=== PATIENT | female | born 1950 | race Caucasian/White ===

== ENCOUNTER 2021-08-05 10:02 | Outpatient (CLI) | payer MEDICARE, SELFPAY ==
--- NOTE | 2021-08-05 10:16 | MM_ITS ---
WS: [id number] BILATERAL SCREENING DIGITAL MAMMOGRAM WITH CAD HISTORY: SCREENING COMPARISON: None available. Bilateral CC and MLO views submitted. Computer aided detection analyzed. Breast composition: There are scattered areas of fibroglandular density. No suspicious masses, microc alcifications or architectural distortion. Numerous calcifications. Prior biopsy clip seen best on th e LEFT CC projection in the central breast. No suspicious groups of calcification and no nodules. MM/[place] [id number] IMPRESSION: BI-RADS: 2-Benign FOLLOW UP: 1 Year Follow-up
== END 2021-08-05 10:03 | disposition home or self-care (01) ==
LOC: RADSHAW 10:13
PROVIDERS: PCP Family Medicine; Visit Provider Family Medicine
DX: Z12.31 Encounter for screening mammogram for malignant neoplasm of breast (principal)
CPT/HCPCS: 77067

== ENCOUNTER → 2021-08-28 08:40 | Outpatient (BNVA) | payer MEDICARE, SELFPAY | PROVIDERS: PCP Family Medicine; Visit Provider Surgery | DX: Z20.822 Contact with and (suspected) exposure to COVID-19 (principal) | CPT/HCPCS: 87635 ==

== ENCOUNTER 2021-09-02 13:50 | Inpatient (IN) | payer MEDICARE, SELFPAY ==
[2021-08-28 10:12] VITALS: BMI 39.4
[2021-09-02] VITALS (22 sets, daily range): BP systolic 129–161; BP diastolic 68–95; PULSE 68–93; RESP 16–21; TEMP 36.1–37.1; O2SAT 87–96; BMI 41.1
--- NOTE | 2021-09-02 06:36 | ANES.PREANE2 ---
Pre-Anesthetic Assessment Height/Weight: Height 1.65 m Weight 107.501 kg Preop Diagnosis: diagnostic Operation Date: 09/02/21 08:00 Proposed Procedures p Colonoscopy 79023 K92.1(Not Applicable) - He Hanson MD Familial anesthetic complications: None Was Beta Alla taken within 24 hours: N/A Was Clonidine taken within 24 hours: N/A Last intake: > 8 hrs Social No alcohol and No tobacco Exam alert, oriented x 3, clear to auscultation bilaterally and regular rate & rhythm Airway Mallampati: Class II Dentition: other (missing) Pulmonary Asthma and Sleep Apnea doesn't often need her rescue inhaler CV/HEM Hypertension None reported Hepatic None reported GI None reported Metabolic Morbid Obesity Neuropsych 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 Anesthetic Plan ASA status: 2 Anesthesia: MAC Risk of > 500 ml blood loss (7ml/kg in children): No Medications/Allergies Home Medications Medication Instructions Recorded Confirmed Last Taken Type lisinopril 10 mg tablet 10 mg PO DAILY 07/28/21 08/28/21 Unknown History mometasone (Asmanex Twisthaler) 2 inh INHALATION BID 07/28/21 08/28/21 Unknown History Allergies Allergy/AdvReac Type Severity Reaction Status Date / Time caffeine Allergy Unknown Verified 07/28/21 11:05 shellfish derived Allergy Unknown Verified 07/28/21 11:05 sorbitol Allergy Unknown Verified 07/28/21 11:05 theophylline Allergy Unknown Verified 07/28/21 11:05 [facility] Anesthesia Medical History (Updated 07/28/21 @ 11:31 by He Hanson MD) Diverticulitis Hypertension ALLAN treated with BiPAP Umbilical hernia Surgical History (Updated 07/28/21 @ 11:25 by He Hanson MD) History of colonoscopy History of hysterectomy History of left breast biopsy Status post left breast lumpectomy Social History Smoking and tobacco status: never smoked Data Anesthesia Cardiac Studies: No Data to Display
[2021-09-02] MEDS: sodium chloride 0.9% 1,000 ML 30 ML IV (07:14)
--- NOTE | 2021-09-02 08:11 | W.PM.OPSFHP ---
Same Day Surgery H&P Indication for Procedure/HPI DATE OF PROCEDURE: September 02, 2021 CHIEF COMPLAINT/INDICATIONFOR SURGICAL PROCEDURE: screening PREOP DIAGNOSIS: diagnostic PLANNED PROCEDURE: Operation Date: 09/02/21 08:00 Proposed Procedures p Colonoscopy 07260 K92.1(Not Applicable) - He Hanson MD Medications/Allergies* Home Medications Medication Instructions Recorded Confirmed Type lisinopril 10 mg tablet 10 mg PO DAILY 07/28/21 08/28/21 History mometasone (Asmanex Twisthaler) 2 inh INHALATION BID 07/28/21 08/28/21 History Allergies/Adverse Reactions Allergy/AdvReac Type Severity Reaction Status Date / Time caffeine Allergy Unknown Verified 07/28/21 11:05 shellfish derived Allergy Unknown Verified 07/28/21 11:05 sorbitol Allergy Unknown Verified 07/28/21 11:05 theophylline Allergy Unknown Verified 07/28/21 11:05 Current Medications: Generic Name Dose Route Start Last Admin Trade Name Freq PRN Reason Stop Dose Admin Sodium Chloride 1,000 mls @ 30 mls/hr 09/02/21 06:45 09/02/21 07:14 Sodium Chloride 0.9% IV 09/03/21 06:44 30 mls/hr .Q24H SANDY Administration Pertinent History/Comorbid Conditions* Medical History (Updated 07/28/21 @ 11:31 by He Hanson MD) Diverticulitis Hypertension ALLAN treated with BiPAP Umbilical hernia Surgical History (Updated 07/28/21 @ 11:25 by He Hanson MD) History of colonoscopy History of hysterectomy History of left breast biopsy Status post left breast lumpectomy Social History Smoking and tobacco status: never smoked Pertinent Exam Findings alert, oriented x 3 and regular rate & rhythm Recommendations Surgery/Procedure today Coding Level of Care Code Acute Truss Builder for Chg Ashvin
--- NOTE | 2021-09-02 08:35 | ANE.PACU2 ---
Inpatient post-anesthesia follow up: Airway intact: Yes Vital signs: Temperature 97.2 F Pulse Rate 79 Respiratory Rate 18 Blood Pressure 154/80 Pulse Oximetry 95 Oxygen Delivery Me thod Room Air Oxygen Flow Rate Fraction of Inspir ed Oxygen Hydration adequate: Yes Nausea and vomiting: No Pain level: 1 Mental status: Baseline
--- NOTE | 2021-09-02 08:46 | PC.NURSE ---
abdominal hernia noted. patient states it's been there for awhile
--- NOTE | 2021-09-02 09:15 | PC.NURSE ---
Helped patient to sit on side of bed. c/o abd upper pain . abd remains soft. bowel sounds hypoactive. laid patient back down. patient has been passing flatus and burping. dr jett notified.
--- NOTE | 2021-09-02 09:19 | PC.NURSE ---
patient resting on left side
--- NOTE | 2021-09-02 09:22 | PC.NURSE ---
continues to pass flatus
--- NOTE | 2021-09-02 09:54 | PC.NURSE ---
sitting on side of bed. tolerating well. continue to c/o pain in upper abd.
[2021-09-02] MEDS: ondansetron 4 MG Tablet PO (10:38)
--- NOTE | 2021-09-02 10:38 | PC.NURSE ---
1000 patient amb to bathroom. continue to c/o upper abd pain, rates 8. nauseated. 1015 dr jett notified and updated. 1030 abd soft, hypoactive bowel sounds. assisted back to bed. order received for po zofran.
--- NOTE | 2021-09-02 10:42 | PC.NURSE ---
Zofran given PO. Patient states her pain is at an 8/10. Abd soft, bowel sounds present, only tender at her hernia site
--- NOTE | 2021-09-02 10:44 | PC.NURSE ---
dr jett aware of pain. instructed to allow patient to rest.
--- NOTE | 2021-09-02 11:39 | CT_ITS ---
WS: [id number] CT ABDOMEN PELVIS TECHNIQUE: Noncontrast CT of the abdomen and pelvis with coronal and sagittal reformatted images. CLINICAL INFORMATION: incarcerated ventral hernia with attempted colonoscopy COMPARISON: None. DLP: 1996.[address] scans at [facility] use at least one of these dose optimization techniques: automated e xposure control; mA and/or kV adjustment per patient size (includes targeted exams where dose is matc hed to clinical indication); or iterative reconstruction. FINDINGS: Layering free intraperitoneal air in the ventral abdomen with large [place] ventral abdominal wall hernia containing transverse colon. Large amount of layering free air. Additional small scattered loc ules of free air within the hernia. Scattered locules of free air within the mid and upper abdomen. N o evidence of bowel obstruction. Colon is decompressed. Transverse colon within the hernia is decompr essed. Layering free air within the nondependent ventral abdominal wall hernia. Small amount of free fluid in the pelvis. Small esophageal hiatal hernia. Slight bibasilar atelectasis. Fatty atrophy of the pancreas. Normal caliber abdominal aorta. Aortic c alcification. Adrenal glands are normal. No hydronephrosis in either kidney. Small LEFT renal cyst. Sigmoid diverticulosis. No evidence of acute diverticulitis. CT/CT abdomen pelvis wo con [id number] IMPRESSION: 1. Layering free intraperitoneal air in the ventral abdomen with large [place] th ventral abdominal wall hernia containing transverse colon. 2. Additional Scattered locules of free air within the hernia. Scattered locul es of free air within the mid and upper abdomen. 3. No evidence of bowel obstruction. 4. Layering free air within the nondependent portion of the ventral abdominal wall hernia. 5. Small amount of free fluid in the pelvis. 6. Colon appears decompressed. 7. Small esophageal hiatal hernia. Notified He Hanson MD at 09/02/2021 1:58 PM.
--- NOTE | 2021-09-02 12:31 | PC.NURSE ---
1220 patient to cat scan via stretcher 1220 returned to gi lab bay 1
--- NOTE | 2021-09-02 12:57 | ANE.PACU2 ---
Inpatient post-anesthesia follow up: Airway intact: Yes Vital signs: Temperature 98.1 F Pulse Rate 75 Respiratory Rate 20 Blood Pressure 132/81 Pulse Oximetry 92 Oxygen Delivery Me thod Room Air Oxygen Flow Rate 3 Fraction of Inspir ed Oxygen Hydration adequate: Yes Nausea and vomiting: No Pain level: 1 Mental status: Baseline
--- NOTE | 2021-09-02 13:34 | PC.NURSE ---
patient admitting to med surg room 279 bed 1 1338 report called to Linda
[2021-09-02] MEDS: D5-NS 0.45% + KCL 20 mEq 20 MEQ/1,000 ML BAG 100 MEQ IV ×2 (15:27→22:13)
--- NOTE | 2021-09-02 15:42 | P.HP_ITS ---
Providers/Chief Complaint Admitting Physician: He Hanson MD Primary Care Provider: Dalia Art MD Chief Complaint: Melena History of Present Illness Rose Fay is a 71 year old female who underwent screening colonoscopy earlier today. I was unable to advance past the transverse colon due to the incarcerated umbilical hernia and the colonoscope was withdrawn. Post procedure patient had severe abdominal pain with couple of episodes of vomiting and therefore a CT abdomen pelvis was obtained and she was admitted to the floor. Patient is able to pass flatus but the pain persisted. CT abdomen pelvis showed intraperitoneal free air and patient is tender around the umbilicus. Review of Systems General: Reports: 10 or more systems reviewed and unremarkable except in HPI and below Medications/Allergies Home Medications Medication Instructions Recorded Confirmed Last Taken Type lisinopril 10 mg tablet 10 mg PO DAILY 07/28/21 08/28/21 09/01/21 History mometasone (Asmanex Twisthaler) 2 inh INHALATION BID 07/28/21 08/28/21 09/02/21 05:00 History Allergies Allergy/AdvReac Type Severity Reaction Status Date / Time caffeine Allergy Unknown Verified 07/28/21 11:05 shellfish derived Allergy Unknown Verified 07/28/21 11:05 sorbitol Allergy Unknown Verified 07/28/21 11:05 theophylline Allergy Unknown Verified 07/28/21 11:05 PFSH Acute PFSH: Medical History Diverticulitis Hypertension ALLAN treated with BiPAP Umbilical hernia Surgical History History of colonoscopy (09/02/21) Diverticulosis, incomplete due to of incarcerated umbilical hernia History of hysterectomy History of left breast biopsy Status post left breast lumpectomy Social History Smoking and tobacco status: never smoked Vitals/I&O/Wt Last Vital Signs Temp 98.0 F 09/02/21 15:30 Pulse 81 09/02/21 15:30 Resp 18 09/02/21 15:30 BP 129/82 09/02/21 15:30 Pulse Ox 87 L 09/02/21 15:30 09/02/21 09/02/21 09/02/21 06:59 14:59 22:59 Intake Total 400 / 400 Output Total 200 / 200 Balance 200 / 200 Weight last 48 hrs Weight 247 lb 6 oz Physical Exam Narrative: HEENT: Normocephalic Eye: Sclera /conjunctiva normal Abdomen: Soft to palpation, incarcerated umbilical hernia tender to palpation Neurological: Oriented to place person and time Skin: Intact, no lesions appreciated on gross exam A&P Assessment and plan (1) Free intraperitoneal air: 71-year-old female with abdominal pain and vomiting after incomplete colonoscopy and a subsequent CT abdomen pelvis showed intraperitoneal free air. Patient is tender to palpate around the umbilicus. She is hemodynamically stable. Plan for laparoscopy, possible laparotomy, possible bowel resection, umbilical hernia repair. Procedure, risks, benefits and alternatives have been discussed with the patient who wishes to proceed with surgery. Status: Acute (2) Umbilical hernia: Plan for repair of umbilical hernia at the time of laparoscopy Status: Acute Attestations Medical Necessity Statement*: Intraperitoneal free air after colonoscopy requiring surgery and Inpatient stay for at least 2 midnights Coding Level of Care Code Acute Nanoelectronics Engineer for Gerardo Lock Diagnoses Free intraperitoneal air K66.8 Umbilical hernia K42.9
--- NOTE | 2021-09-02 15:42 | PC.NURSE ---
Pt taken by bed at this time for pre-op.
[2021-09-02] MEDS: ketorolac 30 mg/mL INJ 15 MG IVP (17:04)
[2021-09-02] MEDS: sodium chloride 0.9% 1,000 ML 30 ML (17:05)
--- NOTE | 2021-09-02 17:39 | P.ANESUD_ITS ---
Pre-Anesthetic Update Pre-Anesthetic Assessment: Date of Surgery/Procedure: 09/02/21 Preop Tabitha gnosis: Intraperitoneal free air Proposed Procedure: Operation Date: 09/02/21 08:00 Proposed Procedures p Colonoscopy 12306 K92.1(Not Applicable) - He Hanson MD Operation Date: 09/02/21 16:05 Proposed Procedures p Laparoscopy(Not Applicable) - He Hanson MD Changes from Pre-Anesthetic Assessment: Free air Last Intake: Intake Last Liquid Date 09/01/21 Last Liquid Time 22:00 Last Solid Date 08/31/21 Last Solid Time 17:00 Labs Last 48hrs: > 8 hrs (got some ice chips upon awakening earlier) Vitals: Temperature 98.0 F 09/02/21 15:30 Temperature Source Oral 09/02/21 15:30 Pulse Rate 81 09/02/21 15:30 Respiratory Rate 18 09/02/21 15:30 Respiratory Effort Non-Labored 09/02/21 14:07 Respiratory Depth Normal 09/02/21 14:07 Respiratory Patter n 09/02/21 14:07 Blood Pressure 129/82 09/02/21 15:30 Blood Pressure Patricia n 97 09/02/21 15:30 Blood Pressure Pos ition Supine 09/02/21 15:30 Pulse Oximetry 87 L 09/02/21 15:30 Oxygen Delivery Me thod 09/02/21 15:30 Oxygen Flow Rate 3 09/02/21 08:30 Exam: Pre-Anes Outpt Exam: alert, oriented x 3, clear to auscultation bilaterally and regular rate & rhythm Other Pertinent Information: Other Pertinent Information: patient refuses blood, platelets, cell saver, and albumin Cardiac Studies: No Data to Display
[2021-09-02] MEDS: piperacillin-tazobactam 3.375 GM in sodium chloride 0.9% (plus) 50 ML IV (18:50)
--- NOTE | 2021-09-02 20:11 | PC.NURSE ---
before beard catheter placed, patient cleansed with baby shampoo due to iodine allergy
--- NOTE | 2021-09-02 20:24 | PM.OP ---
Operative Report Date of procedure: September 02, 2021 Pre-op diagnosis: Intraperitoneal free air status post colonoscopy Incarcerated umbilical hernia containing omentum and transverse colon Post-op diagnosis: Iatrogenic transverse colon perforation status post colonoscopy just proximal to the umbilical hernia neck Incarcerated umbilical hernia containing omentum and transverse colon Procedure done: 1. Exploratory laparotomy with primary repair of colon perforation 2. Open primary repair of incarcerated umbilical hernia Specimens removed/disposition: Hernia sac Surgeon: He Hanson Anesthesia: General Condition: stable Brief History: This is a 71-year-old female with incarcerated umbilical hernia who underwent colonoscopy for hematochezia. The colonoscopy could not be completed due to the obstruction noted at the incarcerated hernia and the colonoscope was withdrawn. Patient subsequently developed abdominal pain and vomiting postprocedure and a CT abdomen pelvis showed intraperitoneal free air. Patient was taken to the operating room for exploration, the surgery was delayed due to another patient requiring surgery for hand amputation. Procedure: The patient was taken to operating room and placed in modified lithotomy position under general anesthesia after IV antibiotic had been administered. The abdomen was prepped and draped in a sterile manner. Patient had a large incarcerated umbilical hernia. An incision was made over the umbilical hernia, subcutaneous tissue was divided, hernia sac was opened with a scalpel free air and small amount of purulent fluid. The contents of the incarcerated hernia sac which contained omentum and transverse colon was dissected free from the sac and adhesions were taken down with LigaSure until the transverse colon could be completely freed. The transverse colon near the hernia neck was exteriorized and there was purulent fluid and hematoma noted in the mesocolon. The mesocolon was freed using electrocautery until a perforation measuring about 1 cm was identified. Interrupted 3-0 Vicryl sutures were then placed placed to close the defect and 2-0 Vicryl Lembert sutures were placed over the closed defect. The wound is copiously irrigated with 3 L of saline after the transverse colon was returned to the peritoneal cavity and covered with omentum. The hernia sac was excised from the subcutaneous tissue and sent to pathology. The umbilical hernia was closed primarily using #1 looped PDS. The subcutaneous tissue was approximated using interrupted 3-0 Vicryl suture and skin was closed with james. 10 cc of 0.5% Marcaine was infiltrated around the incision. Sterile dressings were applied. A Nvoak catheter was placed and the patient was extubated and transferred recovery room in stable condition.
[2021-09-03] VITALS (8 sets, daily range): BP systolic 97–131; BP diastolic 64–84; PULSE 74–93; RESP 16–20; TEMP 36.4–37.2; O2SAT 90–95
[2021-09-03] MEDS: piperacillin-tazobactam 3.375 GM in sodium chloride 0.9% (plus) 50 ML IV ×3 (02:36→18:29)
[2021-09-03 05:12] LABS: Basophils # 0.1 10^3/uL (0.0-0.1); Basophils % 0.4 %; Hematocrit 42.9 % (37.0-47.0); Hemoglobin 14.3 g/dL (11.5-15.3); Lymphocytes # 0.5 10^3/uL (0.8-4.8); Lymphocytes % 2.8 %; Mean Corpuscular HGB Conc 33.3 g/dL (30.0-36.0); Mean Corpuscular Hemoglobin 33.1 pg (28.0-34.0); Mean Corpuscular Volume 99.3 fl (81-99); Mean Platelet Volume 9.8 fL (7.4-10.4); Monocytes # 0.6 10^3/uL (0.2-0.9); Monocytes % 3.9 %; Neutrophils # 15.21 10^3/uL (1.8-7.7); Neutrophils % 92.5 %; Nucleated Red Blood Cells % 0 %; Platelet Count 165 10^3/cmm (130-400); Red Blood Count 4.32 10^6/uL (4.1-5.3); Red Cell Distribution Width 13.2 % (12.1-15.1); White Blood Count 16.4 10^3/uL (4.0-10.0)
[2021-09-03 05:27] LABS: Anion Gap 15.1 (5-19); Blood Urea Nitrogen 9 mg/dL (8-23); Calcium 8.4 mg/dL (8.5-10.5); Carbon Dioxide 20 mmol/L (22-29); Chloride 105 mmol/L (98-107); Glomerular Filtration Rate 62.1 mL/min (90-130); Glucose 207 mg/dL (65-115); Osmolality Calculated 287 mOsm/kg (285-295); Potassium 4.1 mmol/L (3.5-5.1); Sodium 136 mmol/L (136-145)
[2021-09-03] MEDS: D5-NS 0.45% + KCL 20 mEq 20 MEQ/1,000 ML BAG 100 MEQ IV ×2 (08:43→18:28)
[2021-09-03] MEDS: lisinopril 10 mg Tablet PO (08:58)
[2021-09-03] MEDS: HYDROcodone-acetaminophen 5-325 mg Tablet 1 TAB PO ×2 (09:07→15:02)
--- NOTE | 2021-09-03 09:30 | PM.PN ---
Subjective Subjective: Patient states abdominal pain is better, no nausea or vomiting, no flatus or BM Medications: Reviewed: Yes Vitals/I&O/Wt Last Vital Signs Temp 98.8 F 09/03/21 08:45 Pulse 82 09/03/21 08:45 Resp 16 09/03/21 08:45 BP 108/71 09/03/21 08:45 Pulse Ox 92 09/03/21 08:45 09/02/21 09/03/21 09/03/21 22:59 06:59 14:59 Intake Total 650 / 1050 1000 / 1000 Output Total 50 / 250 Balance 600 / 800 1000 / 1000 Weight last 48 hrs Weight 247 lb 6 oz Physical Exam Narrative: Abdomen: Soft tender, nondistended, incision clean dry and intact Urinary Catheter Management: Novak: Cath Placed During This Visit: yes Reason for Continuing Indwelling Catheter: Acute Urinary Retention or Obstruction Urinary Catheter Date of Insertion: 09/02/21 Urinary Catheter Time of Insertion: 20:10 Data : 09/03/21 05:02 09/03/21 05:02 A&P Assessment and plan (1) H/O exploratory laparotomy: 71-year-old female status post ex lap and umbilical hernia repair secondary to iatrogenic colon perforation, currently hemodynamically stable, afebrile with postop ileus Start clear liquid diet DC Novak I-S, wean O2 to room air Lovenox for DVT prophylaxis Daily labs Ambulate with physical therapy Continue IV Zosyn Status: Acute Attestations Medical Necessity Statement*: Patient will need at least 2 days of inpatient stay for IV antibiotics and to rule out any postop complications Coding Level of Care Code Acute Customer Account Executive for Gerardo Lock Diagnoses H/O exploratory laparotomy Z98.890
--- NOTE | 2021-09-03 09:52 | PC.CHAP ---
Pastoral Care Encounter/Spiritual Assessment Type of Contact [] Declined warp starter visit [] Patient/Family/Request visit [] Outpatient visit [] Follow-up visit [] Physician referral [] Code/Alert x Routine visit [] Staff referral [] Actively dying [x] Patient sleeping [] Family support [] [] Out of room [] Palliative care [] [] Receiving care in room [] Pre-surgical visit [] Trauma [] Long length of stay [] ICU visit [] Other: Relational/Emotional Strength [] Patient feels connected with others/family/visitors/staff [] Distress [] Loneliness/isolation [] Abandonment Spirituality of Patient [] Person of [place] [] Attends Anglican of their [place] [] Believes in Prayer [] Reads Bible or Nondenominational materials [] There are Spiritual issues to be addressed Can Bander Operator Interventions [] Prayer [] Active listening [] Non-anxious presence [] Spiritual/emotional support [] Crisis/trauma care [] Spiritual counseling [] Bereavement support [] Provided bereavement packet [] Provided Bible/devotional materials [] Provided toy/stuffed animal, coloring book to patient or family member [] Provided Communion [] Anointing/[place] [] Salvation [] Completed spiritual assessment [] Other: Impact on Illness or Injury [] Angry [] Fearful [] Anxious [] Often cries [] Exhaustion [] Unable to work [] Unable to attend hindu [] Unable to walk/stand [] Unable to read [] Unable to drive [] Unable to eat/drink [] Unable to sleep [] Unable to be with family [] Patient intubated [] Other: Summary Time spent with patient
--- NOTE | 2021-09-03 16:44 | PC.NURSE ---
Patient ambulated in the hallway with walker and oxygen. Patient tolerated well.
[2021-09-03] MEDS: sennosides-docusate Tablet 1 TAB PO (18:29)
[2021-09-03] MEDS: enoxaparin 40 mg/0.4 mL Syringe SUBCUT (18:29)
[2021-09-04] VITALS: BP 101/65; PULSE 83; RESP 17; TEMP 36.7; O2SAT 91
[2021-09-04] MEDS: piperacillin-tazobactam 3.375 GM in sodium chloride 0.9% (plus) 50 ML IV ×3 (02:50→18:37)
[2021-09-04 03:04] LABS: Basophils # 0.1 10^3/uL (0.0-0.1); Basophils % 0.3 %; Eosinophils % 0.1 %; Hematocrit 39.7 % (37.0-47.0); Lymphocytes # 1.1 10^3/uL (0.8-4.8); Lymphocytes % 6.4 %; Mean Corpuscular HGB Conc 32.7 g/dL (30.0-36.0); Mean Corpuscular Hemoglobin 32.6 pg (28.0-34.0); Mean Corpuscular Volume 99.5 fl (81-99); Mean Platelet Volume 9.7 fL (7.4-10.4); Monocytes # 0.7 10^3/uL (0.2-0.9); Monocytes % 4.2 %; Nucleated Red Blood Cells % 0 %; Platelet Count 164 10^3/cmm (130-400); Red Blood Count 3.99 10^6/uL (4.1-5.3); Red Cell Distribution Width 13.3 % (12.1-15.1); White Blood Count 16.8 10^3/uL (4.0-10.0)
[2021-09-04 03:20] LABS: Blood Urea Nitrogen 11 mg/dL (8-23); Calcium 8.6 mg/dL (8.5-10.5); Carbon Dioxide 24 mmol/L (22-29); Chloride 100 mmol/L (98-107); Glomerular Filtration Rate 71.1 mL/min (90-130); Glucose 123 mg/dL (65-115); Osmolality Calculated 279 mOsm/kg (285-295); Sodium 134 mmol/L (136-145)
[2021-09-04 03:31] LABS: Anion Gap 14.2 (5-19); Potassium 4.2 mmol/L (3.5-5.1)
[2021-09-04 05:11] VITALS: BP 111/75; PULSE 99; RESP 18; O2SAT 90
[2021-09-04] MEDS: HYDROcodone-acetaminophen 5-325 mg Tablet 1 TAB PO ×2 (05:18→18:48)
--- NOTE | 2021-09-04 05:20 | PC.NURSE ---
patient reported that she did finally pass gas while up to the bathroom
[2021-09-04 08:02] VITALS: BP 114/77; PULSE 98; RESP 17; TEMP 37.2; O2SAT 96
[2021-09-04] MEDS: D5-NS 0.45% + KCL 20 mEq 20 MEQ/1,000 ML BAG 100 MEQ IV (10:31)
[2021-09-04] MEDS: lisinopril 10 mg Tablet PO (10:47)
[2021-09-04] MEDS: sennosides-docusate Tablet 1 TAB PO ×2 (10:47→18:38)
--- NOTE | 2021-09-04 11:28 | PM.PN ---
Subjective Subjective: Patient is passing flatus, no nausea or vomiting, T-max was 99, still has abdominal pain Medications: Reviewed: Yes Vitals/I&O/Wt Last Vital Signs Temp 99.0 F 09/04/21 08:02 Pulse 98 09/04/21 08:02 Resp 17 09/04/21 08:02 BP 114/77 09/04/21 08:02 Pulse Ox 96 09/04/21 08:02 09/03/21 09/04/21 09/04/21 22:59 06:59 14:59 Intake Total 3025 / 4964 889 / 4964 150 / 150 Output Total 750 / 1310 560 / 1310 Balance 2275 / 3654 329 / 3654 150 / 150 Weight last 48 hrs Weight 247 lb 6 oz Physical Exam Narrative: Abdomen: Soft, tender, nondistended, incision clean dry and intact Urinary Catheter Management: Novak: Cath Placed During This Visit: yes Reason for Continuing Indwelling Catheter: Acute Urinary Retention or Obstruction Urinary Catheter Date of Insertion: 09/02/21 Urinary Catheter Time of Insertion: 20:10 Data : 09/04/21 02:47 09/04/21 02:47 A&P Assessment and plan (1) H/O exploratory laparotomy: 71-year-old female status post ex lap and umbilical hernia repair secondary to iatrogenic colon perforation, currently hemodynamically stable, afebrile with postop ileus, passing flatus Advance to full liquid diet I-S, wean O2 to room air, currently she is pulling 500 on her I-S Lovenox for DVT prophylaxis Daily labs Ambulate with physical therapy WBC 16, T-max 99: Continue IV Zosyn Senna S for bowel regimen Continue home meds Status: Acute Attestations Medical Necessity Statement*: Status post colon perforation requiring continued inpatient stay Coding Level of Care Code Acute Cylinder Press Operator for Chg Fwd Diagnoses H/O exploratory laparotomy Z98.890
[2021-09-04] MEDS: enoxaparin 40 mg/0.4 mL Syringe SUBCUT (18:38)
[2021-09-04 22:10] VITALS: BP 134/82; PULSE 98; RESP 22; TEMP 36.7; O2SAT 92
[2021-09-04 22:50] VITALS: RESP 16; O2SAT 92
[2021-09-05] VITALS (8 sets, daily range): BP systolic 118–158; BP diastolic 70–92; PULSE 67–99; RESP 16–18; TEMP 36.8–37.4; O2SAT 92–99
[2021-09-05] MEDS: piperacillin-tazobactam 3.375 GM in sodium chloride 0.9% (plus) 50 ML IV ×3 (02:42→20:42)
[2021-09-05 04:28] LABS: Basophils # 0.1 10^3/uL (0.0-0.1); Basophils % 0.4 %; Eosinophils # 0.1 10^3/uL (0.0-0.8); Eosinophils % 0.8 %; Hematocrit 40.2 % (37.0-47.0); Hemoglobin 12.7 g/dL (11.5-15.3); Lymphocytes % 7.6 %; Mean Corpuscular HGB Conc 31.6 g/dL (30.0-36.0); Mean Corpuscular Hemoglobin 32.3 pg (28.0-34.0); Mean Corpuscular Volume 102.3 fl (81-99); Mean Platelet Volume 9.9 fL (7.4-10.4); Monocytes # 0.6 10^3/uL (0.2-0.9); Monocytes % 4.6 %; Neutrophils # 11.12 10^3/uL (1.8-7.7); Neutrophils % 85.8 %; Nucleated Red Blood Cells % 0 %; Platelet Count 176 10^3/cmm (130-400); Red Blood Count 3.93 10^6/uL (4.1-5.3); Red Cell Distribution Width 13.2 % (12.1-15.1); White Blood Count 12.9 10^3/uL (4.0-10.0)
[2021-09-05 05:15] LABS: Anion Gap 14.9 (5-19); Blood Urea Nitrogen 8 mg/dL (8-23); Calcium 8.8 mg/dL (8.5-10.5); Carbon Dioxide 25 mmol/L (22-29); Chloride 99 mmol/L (98-107); Glomerular Filtration Rate 122.3 mL/min (90-130); Glucose 144 mg/dL (65-115); Osmolality Calculated 281 mOsm/kg (285-295); Potassium 3.9 mmol/L (3.5-5.1); Sodium 135 mmol/L (136-145)
--- NOTE | 2021-09-05 08:08 | PM.PN ---
Subjective Subjective: Patient is tolerating a full liquid diet, no nausea or vomiting, passing flatus, no BM. She got out of bed yesterday on 1 occasion. Patient is still on oxygen, can barely pull 500 on her incentive spirometry Vitals/I&O/Wt Last Vital Signs Temp 99.3 F 09/05/21 04:00 Pulse 98 09/05/21 04:00 Resp 18 09/05/21 04:00 BP 118/86 09/05/21 04:00 Pulse Ox 93 09/05/21 04:00 09/04/21 09/05/21 09/05/21 22:59 06:59 14:59 Intake Total 801.667 / 1642.667 Output Total 1500 / 2100 600 / 2100 Balance -698.333 / -457.333 -600 / -457.333 Physical Exam Narrative: Abdomen: Soft, minimally tender, nondistended, incision clean dry and intact Urinary Catheter Management: Novak: Cath Placed During This Visit: yes, but has since been removed by the nurse Reason for Continuing Indwelling Catheter: Acute Urinary Retention or Obstruction Urinary Catheter Date of Insertion: 09/02/21 Urinary Catheter Time of Insertion: 20:10 Date Urinary Catheter Removed: 09/03/21 Time Urinary Catheter Discontinued: 17:00 Data : 09/05/21 03:24 09/05/21 03:24 A&P Assessment and plan (1) H/O exploratory laparotomy: 71-year-old female status post ex lap and umbilical hernia repair secondary to iatrogenic colon perforation, currently hemodynamically stable, afebrile with postop ileus, passing flatus full liquid diet I-S, wean O2 to room air, currently she is pulling 500 on her I-S Lovenox for DVT prophylaxis Daily labs Ambulate with physical therapy WBC 12, T-max 99: Continue IV Zosyn Senna S for bowel regimen DC IV fluids Continue home meds Status: Acute Attestations Medical Necessity Statement*: Continue IV antibiotics, awaiting return of bowel function, hopefully home in the next 24 to 48 hours Coding Level of Care Code Acute College Sports Assistant for [place] Fwd Diagnoses H/O exploratory laparotomy Z98.890
--- NOTE | 2021-09-05 10:22 | PC.SOCIAL ---
IMM Update Pg. 2 of IMM updated and reviewed with patient, who verbalized understanding. Copy provided.
[2021-09-05] MEDS: HYDROcodone-acetaminophen 5-325 mg Tablet 1 TAB PO (10:38)
[2021-09-05] MEDS: sennosides-docusate Tablet 1 TAB PO ×2 (10:38→18:26)
[2021-09-05] MEDS: lisinopril 10 mg Tablet PO (10:38)
--- NOTE | 2021-09-05 12:21 | PC.CHAP ---
Pastoral Care Encounter/Spiritual Assessment Type of Contact [] Declined nuclear weapons custodian visit [] Patient/Family/Request visit [] Outpatient visit [] Follow-up visit [] Physician referral [] Code/Alert [X] Routine visit [] Staff referral [] Actively dying [] Patient sleeping [] Family support [] [] Out of room [] Palliative care [] [] Receiving care in room [] Pre-surgical visit [] Trauma [] Long length of stay [] ICU visit [] Other: Relational/Emotional Strength [X] Patient feels connected with others/family/visitors/staff [] Distress [] Loneliness/isolation [] Abandonment Spirituality of Patient [X] Person of Eneida [X] Attends Buddhist of their [place]ne[place] [X] Believes in Prayer [X] Reads Bible or Advent materials [] There are Spiritual issues to be addressed Fuller Brush Man Interventions [] Prayer [X] Active listening [X] Non-anxious presence [] Spiritual/emotional support [] Crisis/trauma care [] Spiritual counseling [] Bereavement support [] Provided bereavement packet [] Provided Bible/devotional materials [] Provided toy/stuffed animal, coloring book to patient or family member [] Provided Communion [] Anointing/[place] [] Salvation [X] Completed spiritual assessment [] Other: Impact on Illness or Injury [] Angry [] Fearful [] Anxious [] Often cries [] Exhaustion [] Unable to work [] Unable to attend hoahaoism [] Unable to walk/stand [] Unable to read [] Unable to drive [] Unable to eat/drink [] Unable to sleep [] Unable to be with family [] Patient intubated [] Other: Summary: Pt recently moved to [place] but is part of a community of ene[place] where she has support ([employer]ism). Pt's overall attitude is one of gratitude. During colonoscopy, problematic hernia issue detected and surgery followed. Pt has strong eneida and feels supported. Time spent with patient: 15 mins
[2021-09-05] MEDS: enoxaparin 40 mg/0.4 mL Syringe SUBCUT (18:25)
[2021-09-06] VITALS (7 sets, daily range): BP systolic 128–149; BP diastolic 75–93; PULSE 92–100; RESP 16–18; TEMP 36.6–37.6; O2SAT 92–98
[2021-09-06 03:42] LABS: Basophils # 0.1 10^3/uL (0.0-0.1); Basophils % 0.5 %; Eosinophils # 0.2 10^3/uL (0.0-0.8); Eosinophils % 1.9 %; Hematocrit 37.1 % (37.0-47.0); Hemoglobin 11.9 g/dL (11.5-15.3); Lymphocytes # 1.3 10^3/uL (0.8-4.8); Mean Corpuscular HGB Conc 32.1 g/dL (30.0-36.0); Mean Corpuscular Hemoglobin 32.2 pg (28.0-34.0); Mean Corpuscular Volume 100.3 fl (81-99); Mean Platelet Volume 9.3 fL (7.4-10.4); Monocytes # 0.7 10^3/uL (0.2-0.9); Monocytes % 7.8 %; Neutrophils # 7.13 10^3/uL (1.8-7.7); Neutrophils % 75.4 %; Nucleated Red Blood Cells % 0 %; Platelet Count 182 10^3/cmm (130-400); White Blood Count 9.5 10^3/uL (4.0-10.0)
[2021-09-06] MEDS: piperacillin-tazobactam 3.375 GM in sodium chloride 0.9% (plus) 50 ML IV ×2 (03:48→10:36)
[2021-09-06 04:02] LABS: Anion Gap 10.7 (5-19); Blood Urea Nitrogen 8 mg/dL (8-23); Carbon Dioxide 28 mmol/L (22-29); Chloride 100 mmol/L (98-107); Glomerular Filtration Rate 122.3 mL/min (90-130); Glucose 136 mg/dL (65-115); Osmolality Calculated 280 mOsm/kg (285-295); Potassium 3.7 mmol/L (3.5-5.1); Sodium 135 mmol/L (136-145)
[2021-09-06] MEDS: sennosides-docusate Tablet 1 TAB PO ×2 (10:36→16:38)
[2021-09-06] MEDS: lisinopril 10 mg Tablet PO (10:37)
--- NOTE | 2021-09-06 12:18 | P.PN_ITS ---
Subjective Subjective: Patient denies any nausea or vomiting, tolerating full liquid diet. She is still on 2 L oxygen delivered now she is pulling about 1000 on her IS Medications: Reviewed: Yes Vitals/I&O/Wt Last Vital Signs Temp 98.3 F 09/06/21 12:00 Pulse 100 09/06/21 12:00 Resp 18 09/06/21 12:00 BP 128/92 09/06/21 12:00 Pulse Ox 97 09/06/21 12:00 09/05/21 09/06/21 09/06/21 22:59 06:59 14:59 Intake Total 50 / 460 50 / 50 Output Total 1200 / 1200 Balance -1200 / -740 50 / -740 50 / 50 Physical Exam Narrative: Abdomen: Soft, mildly tender, nondistended, incision clean dry and intact Urinary Catheter Management: Novak: Cath Placed During This Visit: yes, but has since been removed by the nurse Reason for Continuing Indwelling Catheter: Acute Urinary Retention or Obstruction Urinary Catheter Date of Insertion: 09/02/21 Urinary Catheter Time of Insertion: 20:10 Date Urinary Catheter Removed: 09/03/21 Time Urinary Catheter Discontinued: 17:00 Data : 09/06/21 03:22 09/06/21 03:22 A&P Assessment and plan (1) H/O exploratory laparotomy: 71-year-old female status post ex lap and umbilical hernia repair secondary to iatrogenic colon perforation, currently hemodynamically stable, afebrile with postop ileus, passing flatus Advance to GI soft diet I-S, wean O2 to room air, currently she is pulling 1000 on her I-S, home o2 eval Lovenox for DVT prophylaxis Daily labs Ambulate with physical therapy WBC 9, T-max 99.3: Continue IV Zosyn Senna S for bowel regimen Continue home meds Status: Acute Attestations Medical Necessity Statement*: plan for possible discharge tomorrow as patient has not had BM and is still on 2L o2 Coding Level of Care Code Acute Endocrinology Physician for Gerardo Fwyadira Diagnoses H/O exploratory laparotomy Z98.890
[2021-09-06] MEDS: metroNIDAZOLE 500 MG Tablet PO ×2 (16:38→19:37)
[2021-09-06] MEDS: levoFLOXacin 750 mg Tablet PO (16:38)
[2021-09-06] MEDS: enoxaparin 40 mg/0.4 mL Syringe SUBCUT (16:38)
[2021-09-07 02:47] VITALS: BP 151/83; PULSE 81; RESP 16; TEMP 37; O2SAT 95
[2021-09-07 04:35] LABS: Basophils % 0.5 %; Eosinophils # 0.2 10^3/uL (0.0-0.8); Hemoglobin 11.7 g/dL (11.5-15.3); Lymphocytes # 1.2 10^3/uL (0.8-4.8); Lymphocytes % 15.1 %; Mean Corpuscular HGB Conc 32.5 g/dL (30.0-36.0); Mean Corpuscular Hemoglobin 32.5 pg (28.0-34.0); Mean Platelet Volume 9.1 fL (7.4-10.4); Monocytes # 0.8 10^3/uL (0.2-0.9); Monocytes % 9.6 %; Neutrophils # 5.85 10^3/uL (1.8-7.7); Neutrophils % 71.6 %; Nucleated Red Blood Cells % 0 %; Platelet Count 177 10^3/cmm (130-400); Red Cell Distribution Width 12.9 % (12.1-15.1); White Blood Count 8.2 10^3/uL (4.0-10.0)
[2021-09-07 05:02] LABS: Anion Gap 12.8 (5-19); Blood Urea Nitrogen 8 mg/dL (8-23); Calcium 9.1 mg/dL (8.5-10.5); Carbon Dioxide 29 mmol/L (22-29); Chloride 96 mmol/L (98-107); Glomerular Filtration Rate 122.3 mL/min (90-130); Glucose 128 mg/dL (65-115); Osmolality Calculated 278 mOsm/kg (285-295); Potassium 3.8 mmol/L (3.5-5.1); Sodium 134 mmol/L (136-145)
[2021-09-07] MEDS: levoFLOXacin 750 mg Tablet PO (05:12)
[2021-09-07 07:45] VITALS: BP 133/87; PULSE 95; RESP 18; TEMP 37.1; O2SAT 93
[2021-09-07] MEDS: lisinopril 10 mg Tablet PO (08:26)
[2021-09-07] MEDS: metroNIDAZOLE 500 MG Tablet PO (08:26)
[2021-09-07] MEDS: sennosides-docusate Tablet 1 TAB PO (08:26)
--- NOTE | 2021-09-07 09:23 | PC.SOCIAL ---
IMM UPDATED IMM dated and initialed and copy given to patient
[2021-09-07 09:39] VITALS: O2SAT 92; O2SAT 95
--- NOTE | 2021-09-07 09:56 | P.PN_ITS ---
Subjective Subjective: Patient had multiple bowel movements yesterday, tolerating GI soft diet Medications: Reviewed: Yes Vitals/I&O/Wt Last Vital Signs Temp 98.7 F 09/07/21 07:45 Pulse 95 09/07/21 07:45 Resp 18 09/07/21 07:45 BP 133/87 09/07/21 07:45 Pulse Ox 95 09/07/21 09:39 09/06/21 09/07/21 09/07/21 22:59 06:59 14:59 Intake Total 480 / 580 Output Total 300 / 1600 600 / 1600 Balance 180 / -1020 -600 / -1020 Physical Exam Narrative: Abdomen: Soft, minimally tender, nondistended, incision clean dry and intact Urinary Catheter Management: Novak: Cath Placed During This Visit: yes, but has since been removed by the nurse Reason for Continuing Indwelling Catheter: Acute Urinary Retention or Obstruction Urinary Catheter Date of Insertion: 09/02/21 Urinary Catheter Time of Insertion: 20:10 Date Urinary Catheter Removed: 09/03/21 Time Urinary Catheter Discontinued: 17:00 Data : 09/07/21 04:08 09/07/21 04:08 A&P Assessment and plan (1) H/O exploratory laparotomy: 71-year-old female status post ex lap and umbilical hernia repair secondary to iatrogenic colon perforation, currently hemodynamically stable, afebrile with postop ileus that has resolved DC home today Status: Acute Attestations Medical Necessity Statement*: DC home today Coding Level of Care Code Acute Senior Compensation Consultant for [place] Fwyadira Diagnoses H/O exploratory laparotomy Z98.890
--- NOTE | 2021-09-07 09:59 | PM.DCS ---
Discharge Providers Date of Admission: 09/02/21 13:50 Date of Discharge: September 07, 2021 Attending Provider at Admission: He Hanson MD Attending Provider at Discharge: He Hanson MD Primary Care Provider: Dalia Art MD Diagnoses at Discharge Discharge Diagnosis (1) H/O exploratory laparotomy: Status: Acute Reason for Visit Reason for Visit: Colon perforation Brief History: This is a 71-year-old female who had undergone screening colonoscopy and subsequently developed abdominal pain at the site of incarcerated hernia. CT abdomen pelvis showed intraperitoneal free air. Hospital Course Hospital Course Patient was taken to the operating room where she underwent exploratory laparotomy with repair of perforation of the transverse colon adjacent to the hernia neck. I also performed a primary repair of her incarcerated umbilical hernia which contained omentum and transverse colon. Patient was monitored postoperatively and placed on IV Zosyn. By day 3 she had return of bowel function and at time of discharge she was afebrile, tolerating a regular diet, having bowel movements and her incisions are clean dry and intact. Patient had been on 2 L oxygen and she was finally able to come off oxygen on the day of discharge with aggressive incentive spirometery. Physical Exam Urinary Catheter Management: Novak: Cath Placed During This Visit: yes, but has since been removed by the nurse Reason for Continuing Indwelling Catheter: Acute Urinary Retention or Obstruction Urinary Catheter Date of Insertion: 09/02/21 Urinary Catheter Time of Insertion: 20:10 Date Urinary Catheter Removed: 09/03/21 Time Urinary Catheter Discontinued: 17:00 Discharge Data Studies Completed and Pending Completed Studies During Hospitalization Category Date Time Status CT abdomen pelvis con [id number] Routine Cat Scan 09/02/21 11:39 Completed Pathology: Surgical [PTH] Routine Pth 09/02/21 20:00 Completed Pending at discharge Category Date Time Status Basic Metabolic Panel AM LABS Lab 09/08/21 04:00 Ordered Complete Blood Count w/Auto AM LABS Lab 09/08/21 04:00 Ordered Radiology Impressions Abdomen/Pelvis CT 09/02/21 11:39 IMPRESSION: 1. Layering free intraperitoneal air in the ventral abdomen with large [place] ventral abdominal wall hernia containing transverse colon. 2. Additional Scattered locules of free air within the hernia. Scattered locules of free air within the mid and upper abdomen. 3. No evidence of bowel obstruction. 4. Layering free air within the nondependent portion of the ventral abdominal wall hernia. 5. Small amount of free fluid in the pelvis. 6. Colon appears decompressed. 7. Small esophageal hiatal hernia. Notified He Hanson MD at 09/02/2021 1:58 PM. Laboratory Results WBC 8.2 10^3/uL (4.0-10.0) 09/07/21 04:08 RBC 3.60 10^6/uL (4.1-5.3) L 09/07/21 04:08 Hgb 11.7 g/dL (11.5-15.3) 09/07/21 04:08 Hct 36.0 % (37.0-47.0) L 09/07/21 04:08 MCV 100.0 fl (81-99) H 09/07/21 04:08 MCH 32.5 pg (28.0-34.0) 09/07/21 04:08 MCHC 32.5 g/dL (30.0-36.0) 09/07/21 04:08 RDW 12.9 % (12.1-15.1) 09/07/21 04:08 Plt Count 177 10^3/cmm (130-400) 09/07/21 04:08 MPV 9.1 fL (7.4-10.4) 09/07/21 04:08 Neut % (Auto) 71.6 % 09/07/21 04:08 Lymph % (Auto) 15.1 % 09/07/21 04:08 [place] % (Auto) 9.6 % 09/07/21 04:08 Eos % (Auto) 2.0 % 09/07/21 04:08 Baso % (Auto) 0.5 % 09/07/21 04:08 Neut # (Auto) 5.85 10^3/uL (1.8-7.7) 09/07/21 04:08 Lymph # (Auto) 1.2 10^3/uL (0.8-4.8) 09/07/21 04:08 [place] # (Auto) 0.8 10^3/uL (0.2-0.9) 09/07/21 04:08 Eos # (Auto) 0.2 10^3/uL (0.0-0.8) 09/07/21 04:08 Baso # (Auto) 0.0 10^3/uL (0.0-0.1) 09/07/21 04:08 Nucleated RBC % (auto) 0 % 09/07/21 04:08 Nucleated RBCs # 0.0 /100WBC 09/07/21 04:08 Sodium 134 mmol/L (136-145) L 09/07/21 04:08 Potassium 3.8 mmol/L (3.5-5.1) 09/07/21 04:08 Chloride 96 mmol/L (98-107) L 09/07/21 04:08 Carbon Dioxide 29 mmol/L (22-29) 09/07/21 04:08 Anion Gap 12.8 (5-19) 09/07/21 04:08 BUN 8 mg/dL (8-23) 09/07/21 04:08 Creatinine 0.5 mg/dL (0.5-0.9) 09/07/21 04:08 GFR Calculation 122.3 mL/min (90-130) 09/07/21 04:08 Glucose 128 mg/dL (65-115) H 09/07/21 04:08 Calculated Osmolality 278 mOsm/kg (285-295) L 09/07/21 04:08 Calcium 9.1 mg/dL (8.5-10.5) 09/07/21 04:08 Vitals Last Vital Signs Temp 98.7 F 09/07/21 07:45 Pulse 95 09/07/21 07:45 Resp 18 09/07/21 07:45 BP 133/87 09/07/21 07:45 Pulse Ox 95 09/07/21 09:39 Discharge Plan Discharge Patient Disposition: Home Condition: Stable Prescriptions: New hydrocodone-acetaminophen 5-325 mg tablet 1 tab PO Q6H PRN (Reason: pain) Qty: 20 0RF Zofran 4 mg tablet 4 mg PO Q6H PRN (Reason: nausea and vomiting) Qty: 20 0RF Senna with Docusate Sodium 8.6-50 mg tablet 1 tab-cap PO BID Qty: 30 0RF levofloxacin 750 mg tablet 750 mg PO DAILY 5 Days 0RF metronidazole 500 mg tablet 500 mg PO Q8H 5 Days Qty: 15 0RF Continued lisinopril 10 mg tablet 10 mg PO DAILY 0RF Asmanex Twisthaler 220 mcg/ actuation (120) aerosol powdr breath activated 2 inh inhalation BID 0RF Discharge Orders: Discharge Order (Routine); Ordered 09/07/21 Ordered By: He Hanson Other Ambulatory Orders: DME: Kel (Order) Location: None Selected Ordered By: He Hanson Referrals: He Hanson MD [Physician] - 2 weeks (Tele after Gastrografin enema -ask office to schedule a Gastrografin enema. Dr Hanson's office will call you to schedule your 2 week telehealth visit and your enema. If you do not hear from the office within 2 weeks please call [phone] to schedule.) Discharge Diet: Advance as tolerated Discharge Activity: Resume usual activity Patient Instructions: Metronidazole (By mouth), Ondansetron (By mouth), Levofloxacin (By mouth), Hydrocodone (By mouth), Senna (By mouth), Umbilical Hernia (DC), GI Discharge Instructions Activity Restrictions/Additional Instructions: Diet Advance to normal diet as tolerated, increase fluid intake as much as possible. Activity Avoid strenuous activity for 2 weeks but continue with daily activities including walking as tolerated. Do not lift more than 10 pounds for 2 weeks Return to work/school You can return to work/ school whenever you feel ready as long as you don?t have to lift more than 10 pounds at work. If you have paperwork that needs to be completed for time off from work, please contact my office Driving You can resume driving once you stop using narcotic pain medications, and transition to non-opioid pain medications like Tylenol, Motrin, Aleve, etc. Medications Pain Take opioid pain medications as prescribed and transition to non-opioid pain medications like Tylenol, Motrin, Aleve etc. over the next few days. The goal of the pain medications is to make the pain bearable and not to be pain free since you recently had surgery. Resume all home medications after surgery as per the medication reconciliation list Nausea Nausea is common after surgery, take nausea medications as needed and stay on a liquid bland diet until nausea resolves. Constipation The combination of surgery, anesthesia and pain medications can result in constipation. Take stool softeners as prescribed. If you do not have a bowel movement in 3 days, please take an [id number]-[id number]-prtnyjv laxative like MiraLAX to address the constipation. Shower It is ok to shower but avoid getting the wound wet for 48 hours after surgery. Do not soak in bathtub, swimming pool or hot tub for 2 weeks. Wound care If glue has been used on your incisions after surgery, the glue on the incision will peel slowly over the next two weeks. The stitches used are dissolvable and will not need to be removed. Do not apply antibiotics or other medications on the incision Problems with the wound: you can develop some redness around the incision from bruising after surgery. If there is increasing pain, redness, tenderness around the incision with or without drainage, please contact my office to rule out an infection. Sometimes the skin at the incisions can separate, resulting in reopening of the wound. Cover the wound with antibiotic cream and sterile dressings and contact my office. Contact physician Call the office at [phone] during office hours or go the Emergency Room ?Fever to 100.4 or greater ?Shaking chills ?Pain that increases over time ?Redness, warmth, or pus draining from incision sites ?Persistent nausea or inability to take in liquids Discharge Attestations Time Spent in Discharge Care*: less than 30 min Quality Metrics Clinical Quality Measures [ No reported AMI, CVA or VTE this stay] Coding Level of Care Code Acute Chg FW DC note Diagnoses H/O exploratory laparotomy Z98.890
[2021-09-07 11:35] VITALS: BP 128/72; PULSE 73; RESP 17; TEMP 36.9; O2SAT 98
--- NOTE | 2021-09-07 11:51 | PC.NURSE ---
Discharge Patient was discharged to private vehicle via wheelchair and was able to transfer self to car. All belongings were with patient. Discharge instructions were given and read per orders. PT understood and gave verbal understanding.
[2021-09-07 11:53] VITALS: BP 128/72; PULSE 73; RESP 17; TEMP 36.9; O2SAT 98
== END 2021-09-07 11:40 | disposition home or self-care (01) | DRG 908 ==
LOC: MEDSURG 13:52
PROVIDERS: Admitting Provider Surgery; PCP Family Medicine; Visit Provider Surgery
PROC: 0DJD8ZZ Inspection of Lower Intestinal Tract, Via Natural or Artificial Opening Endoscopic (ICD-10-PCS; CPT 45378; principal; 2021-09-02 08:00)
PROC: 0WQF0ZZ Repair Abdominal Wall, Open Approach (ICD-10-PCS; principal; 2021-09-02 16:05)
DX: K91.71 Accidental puncture and laceration of a digestive system organ or structure during a digestive system procedure (principal); K42.0 Umbilical hernia with obstruction, without gangrene; Z68.41 Body mass index [BMI] 40.0-44.9, adult; G47.33 Obstructive sleep apnea (adult) (pediatric); I10 Essential (primary) hypertension; J45.909 Unspecified asthma, uncomplicated; E66.01 Morbid (severe) obesity due to excess calories; K66.8 Other specified disorders of peritoneum; Z98.890 Other specified postprocedural states; Z87.19 Personal history of other diseases of the digestive system
CPT/HCPCS: 36415; 51702; 74176; 80048; 85025; 88302; 94664; 96372; 97110; 97116; 97161; 97530; G0121; J1100; J1650; J1885; J2405; J2543; J2704; J2710; J3010; J3490; J7030; Q0162

== ENCOUNTER 2022-02-05 07:57 | Outpatient (CLI) | payer BC, SELFPAY ==
--- NOTE | 2022-02-05 08:16 | FL_ITS ---
WS: [id number] Exam: [place] barium enema [id number] Date/Time of Exam: 02/05/2022 8:29 AM Reason For Exam: HEMATOCHEZIA Preliminary abdominal survey is unremarkable. The colon fills to the cecum but no barium couldn't be refluxed into the terminal ileum. No colonic m ass or constricting lesion was noted. Scattered retained particulate stool was present which would pr eclude detection of a small mucosal lesion or polyp. There is diverticulosis of the sigmoid and left colon. The colon is nondisplaced. The haustral pattern is otherwise well maintained. FL/FL barium enema [id number] IMPRESSION: 1. No obvious colonic mass or constricting lesion. 2. Retained particulate fecal debris which would preclude detection of a small mucosal lesion or polyp. 3. Marked diverticulosis of the sigmoid and lower descending colon with additio nal diverticula in the remainder of the descending colon and splenic flexure.
== END 2022-02-05 07:58 | disposition home or self-care (01) ==
LOC: RAD 08:04
PROVIDERS: PCP Family Medicine; Visit Provider Surgery
DX: K92.1 Melena (principal); K57.30 Diverticulosis of large intestine without perforation or abscess without bleeding
CPT/HCPCS: 74270

== ENCOUNTER 2023-02-14 13:16 | Outpatient (CLI) | payer BC, SELFPAY ==
--- NOTE | 2023-02-14 13:37 | MM_ITS ---
WS: [id number] SCREENING DIGITAL TOMOSYNTHESIS MAMMOGRAM WITH CAD HISTORY: SCREENING COMPARISON: 08/05/2021 Bilateral CC and MLO with tomosynthesis views submitted. Synthetic mammography reviewed. Computer aid ed detection analyzed. Breast composition: There are scattered areas of fibroglandular density. No suspicious masses, microc alcifications or architectural distortion. Bilateral breast calcifications and asymmetries are stable . Biopsy clip in the central LEFT breast. MM/[place] [id number] IMPRESSION: BI-RADS: 2-Benign FOLLOW UP: 1 Year Follow-up
== END 2023-02-14 13:17 | disposition home or self-care (01) ==
PROVIDERS: PCP Family Medicine; Visit Provider Family Medicine
DX: Z12.31 Encounter for screening mammogram for malignant neoplasm of breast (principal)
CPT/HCPCS: 77063; 77067

== ENCOUNTER 2023-08-12 11:52 | Outpatient (CLI) | payer MEDICARE, SELFPAY ==
--- NOTE | 2023-08-12 12:04 | CT_ITS ---
WS: [id number] CT ABDOMEN AND PELVIS NONCONTRAST HISTORY: FLANK HEMATURIA TECHNIQUE: Imaging performed through the abdomen and pelvis. Coronal and sagittal reformats are submi tted. All CT scans at [facility] use at least one of these dose optimization techniques: auto mated exposure control; mA and/or kV adjustment per patient size (includes targeted exams where dose is matched to clinical indication); or iterative reconstruction. DLP: 960.67 mGy.cm COMPARISON: 09/02/2021 Lower thorax: Lung bases are clear. Visualized heart is normal. No hiatal hernia. Liver: Normal size liver. No mass or bile duct dilatation. Gallbladder: Cholelithiasis without acute cholecystitis. Pancreas: Mild diffuse pancreatic atrophy. Spleen: Normal. Adrenal glands: Normal. No mass. Right kidney: Normal size kidney with no mass or hydronephrosis. Left kidney: No obstruction. Area of decreased attenuation in the upper pole measures 1.6 cm, similar to the prior study. Aorta: Moderate to severe atherosclerosis abdominal aorta. No aneurysm. Atherosclerosis continues int o the common iliac arteries. No free fluid, intraperitoneal air or significant lymphadenopathy. GI tract: No obstruction. Normal appendix. Mild distal colon diverticula without acute diverticulitis . Abdominal wall: Ventral abdominal wall hernia contains omental fat only. Pelvis: Prior hysterectomy. No distal ureteral calcification. Nondistended bladder. Osseous structures: Unremarkable. IMPRESSION: 1. No renal calcifications or obstruction. 2. Low-attenuation mass in the upper pole measures 1.6 cm. This may be a small cyst. This can be fur ther evaluated by ultrasound to exclude solid mass. 3. No distal ureteral calcifications. No bladder calcifications. 4. Mild distal colonic diverticular burden. 5. Cholelithiasis without acute cholecystitis.
== END 2023-08-12 11:53 | disposition home or self-care (01) ==
LOC: RAD 11:53
PROVIDERS: PCP Family Medicine; Visit Provider Family Medicine
DX: R31.0 Gross hematuria (principal); N28.89 Other specified disorders of kidney and ureter; K57.30 Diverticulosis of large intestine without perforation or abscess without bleeding; K80.20 Calculus of gallbladder without cholecystitis without obstruction
CPT/HCPCS: 74176

== ENCOUNTER 2024-05-17 16:33 | Emergency (ER) | payer MEDICARE, SELFPAY ==
[2024-05-17 16:42] VITALS: BP 161/92; PULSE 84; RESP 18; TEMP 36.8; O2SAT 95; BMI 39.7
[2024-05-17 18:36] LABS: Basophils # 0.1 10^3/uL (0.0-0.1); Basophils % 0.5 %; Eosinophils # 0.1 10^3/uL (0.0-0.8); Eosinophils % 0.7 %; Hematocrit 45.5 % (36-47); Lymphocytes # 1.6 10^3/uL (0.8-4.8); Lymphocytes % 15.6 %; Mean Corpuscular HGB Conc 32.7 g/dL (30-55); Mean Corpuscular Hemoglobin 32.9 pg (27-33); Mean Corpuscular Volume 100.4 fl (85-98); Mean Platelet Volume 9.3 fL (7.4-10.4); Monocytes # 0.8 10^3/uL (0.2-0.9); Monocytes % 7.5 %; Neutrophils # 7.56 10^3/uL (1.8-7.7); Neutrophils % 75.3 %; Nucleated Red Blood Cells % 0 %; Platelet Count 173 10^3/cmm (157-399); Red Blood Count 4.53 10^6/uL (3.85-5.65); Red Cell Distribution Width 12.8 % (12.1-15.1); White Blood Count 10.03 10^3/uL (3.29-11.43)
[2024-05-17 18:53] VITALS: PULSE 65; O2SAT 98
[2024-05-17 18:59] LABS: Bilirubin Urine Negative (Negative); Blood Urine 3+ (Negative); Glucose Urine UA Negative (Normal); Ketones Urine 1+ (Negative); Leukocyte Esterase Urine 2+ (Negative); Nitrate Urine Negative (Negative); Protein Urine Trace (Negative); Specific Gravity, Urine 1.016 (1.005-1.030); Urine Appearance Cloudy (CLEAR); Urine Color Yellow (Yellow)
[2024-05-17 19:01] LABS: Add Urine Microscopic? YES; Bacteria Urine None Seen /hpf; RBC Urine 21-50 /hpf (0-2); Squamous Epithelial Cell Urine 0-5 /hpf (0-5); WBC Urine 21-50 /hpf (0-5)
[2024-05-17 19:03] LABS: Add Urine Culture? Yes
[2024-05-17 19:06] LABS: Alanine Aminotransferase 15 U/L (0-33); Albumin Level 3.6 g/dL (3.5-5.2); Alkaline Phosphatase 68 U/L (35-105); Aspartate Amino Transferase 23 U/L (0-32); Blood Urea Nitrogen 13 mg/dL (8-23); Calcium 8.9 mg/dL (8.5-10.5); Carbon Dioxide 22 mmol/L (22-29); Chloride 97 mmol/L (98-107); Creatinine Clr Calc Pharmacy 51.8886; Globulin 2.5 g/dL (1.3-4.6); Glucose 113 mg/dL (65-115); Osmolality Calculated 279 mOsm/kg (285-295); Sodium 134 mmol/L (136-145); Total Bilirubin 0.9 mg/dL (0.15-1.2); Total Protein 6.1 g/dL (6.6-8.7)
[2024-05-17 19:07] LABS: Anion Gap 18.6 (5-19); Potassium 3.6 mmol/L (3.5-5.1)
--- NOTE | 2024-05-17 19:20 | ED_ITS ---
HPI - Female Genitourinary 2 General: Chief complaint: Urogenital-Female Stated complaint: weak,n,v,peeing blood Time Seen by Provider: 05/17/24 18:02 History of Present Illness: Patient presents to the ER with complaining of blood in her urine and blood when she wipes her buttocks region. Patient stated she has had a hysterectomy but they left her ovaries in. She describes the blood as both bright and dark red. Patient says she has lower left quadrant abdominal pain and back pain. Patient says she has had a history of diverticulitis and this feels similar to that in the past. Related Data Home Medications Medication Instructions Recorded Confirmed lisinopril 10 mg tablet 10 mg PO DAILY 07/28/21 10/13/21 mometasone 220 mcg/actuation(120 2 inh inhalation BID 07/28/21 10/13/21 doses)breath activated powder inhaler (Asmanex Twisthaler) Previous Rx's Medication Instructions Recorded ciprofloxacin HCl 500 mg tablet 500 mg PO Q12H #20 tabs 05/17/24 Allergies Allergy/AdvReac Type Severity Reaction Status Date / Time caffeine Allergy Unknown Verified 07/28/21 11:05 shellfish derived Allergy Unknown Verified 07/28/21 11:05 sorbitol Allergy Unknown Verified 07/28/21 11:05 theophylline Allergy Unknown Verified 07/28/21 11:05 Review of Systems 2 General: Reports: 10 or more systems reviewed and unremarkable except in HPI and below PFSH ED 2 PFSH: Medical History ALLAN treated with BiPAP Diverticulitis Umbilical hernia Hypertension Surgical History H/O exploratory laparotomy (09/02/21) History of umbilical hernia repair (09/02/21) Status post left breast lumpectomy History of left breast biopsy History of hysterectomy History of colonoscopy (09/02/21) Diverticulosis, incomplete due to of incarcerated umbilical hernia Social History Smoking and tobacco/nicotine status: never used tobacco/nicotine Physical Exam 2 Const: COMMON NORMALS: no acute distress, average body habitus, patient oriented x3, no limitations, healthy appearing, alert and well nourished HENMT: COMMON NORMALS: normocephalic, atraumatic, hearing grossly normal bilaterally, external ears normal, Normal external nose present and moist oral mucous membranes HEAD & SCALP: normocephalic and atraumatic NOSE: Normal external nose present EXTERNAL EAR: Yes external ears normal Neck/C-Spine: COMMON NORMALS: full ROM, no lymphadenopathy, supple, no meningeal signs, no JVD and Thyroid normal THYROID: Thyroid normal Chest: COMMONS NORMALS: normal inspection of the chest and normal palpation of entire chest wall Resp: COMMON NORMALS: normal respiratory effort, No retractions, No use of accessory muscles and clear to auscultation bilaterally AUSCULTATION: clear to auscultation bilaterally Cardio: COMMON NORMALS: no JVD, regular rate, regular rhythm, S1 normal heart sound present, S2 normal heart sound present, No gallops present (Cardio), No clicks present (Cardio), No murmurs present (Cardio) and No rub (Cardio) R ATE: regular rate RHYTHM: regular rhythm HEART SOUNDS: S1 normal heart sound present and S2 normal heart sound present GI: COMMON NORMALS: Normal to inspection, nondistended, normoactive bowel sounds present, Soft to palpation, No hepatosplenomegaly present and no masses; negative for non-tender (Pain with palpation over the lower left quadrant) P ALPATION: Yes Soft to palpation and Yes No hepatosplenomegaly present Neuro: COMMON NORMALS: patient oriented x3 SENSORIUM/ORIENTATION: Yes alert MENINGEAL SIGNS: Yes no meningeal signs Course 2 Vital Signs: Vital signs: Vital Signs Temperature 98.2 F 05/17/24 16:42 Pulse Rate 65 05/17/24 18:53 Respiratory Rate 18 05/17/24 16:42 Blood Pressure 161/92 05/17/24 16:42 Pulse Oximetry 98 05/17/24 18:53 Oxygen Delivery Me thod Room Air 05/17/24 18:53 MDM - Female Medical Decision Making Lab work was obtained and essentially very unremarkable other than significant for mild urinary tract infection. Patient will be treated with Cipro and discharged home Medical Records I reviewed the patient's medical records. Lab Data I reviewed the patient's lab results. 05/17/24 18:28 05/17/24 18:28 Laboratory Results WBC 10.03 10^3/uL (3.29-11.43) 05/17/24 18: RBC 4.53 10^6/uL (3.85-5.65) 05/17/24 18: Hgb 14.90 g/dL (11.27-16.99) 05/17/24 18: Hct 45.5 % (36-47) 05/17/24 18: MCV 100.4 fl (85-98) H 05/17/24 18: MCH 32.9 pg (27-33) 05/17/24 18: MCHC 32.7 g/dL (30-55) 05/17/24 18: RDW 12.8 % (12.1-15.1) 05/17/24 18: Plt Count 173 10^3/cmm (157-399) 05/17/24 18: MPV 9.3 fL (7.4-10.4) 05/17/24 18:28 Neut % (Auto) 75.3 % 05/17/24 18: Lymph % (Auto) 15.6 % 05/17/24 18:28 [place] % (Auto) 7.5 % 05/17/24 18: Eos % (Auto) 0.7 % 05/17/24 18: Baso % (Auto) 0.5 % 05/17/24 18: Neut # (Auto) 7.56 10^3/uL (1.8-7.7) 05/17/24 18:28 Lymph # (Auto) 1.6 10^3/uL (0.8-4.8) 05/17/24 18: [place] # (Auto) 0.8 10^3/uL (0.2-0.9) 05/17/24 18:28 Eos # (Auto) 0.1 10^3/uL (0.0-0.8) 05/17/24 18: Baso # (Auto) 0.1 10^3/uL (0.0-0.1) 05/17/24 18:28 Nucleated RBC % (auto) 0 % 05/17/24 18: Nucleated RBCs # 0.0 /100WBC 05/17/24 18: PT 14.60 SECONDS (12.1-14.9) 05/17/24 18:49 INR 1.11 (0.8-1.2) 05/17/24 18:49 Sodium 134 mmol/L (136-145) L 05/17/24 18:28 Potassium 3.6 mmol/L (3.5-5.1) 05/17/24 18:28 Chloride 97 mmol/L (98-107) L 05/17/24 18:28 Carbon Dioxide 22 mmol/L (22-29) 05/17/24 18:28 Anion Gap 18.6 (5-19) 05/17/24 18:28 BUN 13 mg/dL (8-23) 05/17/24 18:28 Creatinine 1.2 mg/dL (0.5-0.9) H 05/17/24 18:28 GFR Calculation Not Reportable 05/17/24 18:28 Glucose 113 mg/dL (65-115) 05/17/24 18:28 Calculated Osmolality 279 mOsm/kg (285-295) L 05/17/24 18:28 Lactic Acid 1.6 mmol/L (0.5-2.2) 05/17/24 18:49 Calcium 8.9 mg/dL (8.5-10.5) 05/17/24 18:28 Total Bilirubin 0.9 mg/dL (0.15-1.2) 05/17/24 18:28 AST 23 U/L (0-32) 05/17/24 18:28 ALT 15 U/L (0-33) 05/17/24 18:28 Alkaline Phosphatase 68 U/L (35-105) 05/17/24 18:28 C-Reactive Protein 31.9 mg/L (0.0-4.9) H 05/17/24 18:49 Total Protein 6.1 g/dL (6.6-8.7) L 05/17/24 18:28 Albumin 3.6 g/dL (3.5-5.2) 05/17/24 18:28 Globulin 2.5 g/dL (1.3-4.6) 05/17/24 18:28 Urine Color Yellow (Yellow) 05/17/24 18:49 Urine Appearance Cloudy (CLEAR) A 05/17/24 18:49 Urine pH 5.0 (5-7) 05/17/24 18:49 Ur Specific [place] 1.016 (1.005-1.030) 05/17/24 18:49 Urine Protein Trace (Negative) A 05/17/24 18:49 Urine Glucose (UA) Negative (Normal) 05/17/24 18:49 Urine Ketones 1+ (Negative) H 05/17/24 18:49 Urine Blood 3+ (Negative) A 05/17/24 18:49 Urine Nitrate Negative (Negative) 05/17/24 18:49 Urine Bilirubin Negative (Negative) 05/17/24 18:49 Urine Urobilinogen 1.0 mg/dL (Negative) 05/17/24 18:49 Ur Leukocyte Esterase 2+ (Negative) A 05/17/24 18:49 Urine RBC 21-50 /hpf (0-2) H 05/17/24 18:49 Urine WBC 21-50 /hpf (0-5) H 05/17/24 18:49 Ur Squamous Epith Cells 0-5 /hpf (0-5) 05/17/24 18:49 Amorphous Sediment Not Reportable 05/17/24 18:49 Urine Bacteria None seen /hpf (NONE) 05/17/24 18:49 Hyaline Casts 0.40 /lpf 05/17/24 18:49 All radiology interpretation(s) finalized by discharge Discharge Plan Discharge Patient Disposition: Home Clinical Impression: Rectal bleed Urinary tract infection Qualifiers: Urinary tract infection type: acute cystitis Hematuria presence: with hematuria Qualified Code(s): N30.01 - Acute cystitis with hematuria Condition: Stable Prescriptions: New ciprofloxacin HCl 500 mg tablet 500 mg PO Q12H Qty: 20 0RF No Action lisinopril 10 mg tablet 10 mg PO DAILY Asmanex Twisthaler 220 mcg/ actuation (120) aerosol powdr breath activated 2 inh inhalation BID Discharge Orders: Discharge ED (Routine); Ordered 05/17/24 Ordered By: Logan Guerra Referrals: Dalia Art MD [Primary Care Provider] - 1 week Patient Instructions: Urinary Tract Infection - Women, Rectal Bleeding (ED) Activity Restrictions/Additional Instructions: Your evaluation ER that included physical exam and lab work, lab work was essentially benign other than showing of urinary tract infection. Cipro and antibiotic has been called into the pharmacy 40 please fill it and take it as directed. Please follow-up with your family doctor for further evaluation and treatment. Coding Level of Care Code ED Teaching Supervisor for Gerardo Lock
[2024-05-17 19:51] LABS: C Reactive Protein 31.9 mg/L (0.0-4.9); Lactic Sepsis W/Reflex 1.6 mmol/L (0.5-2.2)
[2024-05-17 20:00] VITALS: BP 153/69; PULSE 71; RESP 17; O2SAT 97
[2024-05-17 20:23] LABS: INR 1.11 (0.8-1.2)
[2024-05-17 20:30] VITALS: BP 138/81; PULSE 69; RESP 16; O2SAT 96
[2024-05-17 21:00] VITALS: BP 146/84; PULSE 68; RESP 17; O2SAT 94
[2024-05-17] MEDS: ciprofloxacin 500 mg Tablet PO (21:16)
== END 2024-05-17 21:36 | disposition home or self-care (01) ==
PROVIDERS: Emergency Provider Emergency Medicine; PCP Family Medicine
DX: N30.01 Acute cystitis with hematuria (principal); K62.5 Hemorrhage of anus and rectum; I10 Essential (primary) hypertension
CPT/HCPCS: 80053; 81001; 83605; 85025; 85610; 86140; 87086; 99283

== ENCOUNTER 2024-10-18 12:24 | Outpatient (CLI) | payer MEDICARE, SELFPAY ==
--- NOTE | 2024-10-18 12:31 | MM_ITS ---
WS: [id number] BILATERAL SCREENING DIGITAL TOMOSYNTHESIS MAMMOGRAM WITH CAD HISTORY: SCREENING COMPARISON: 02/14/2023, 08/05/2021 Bilateral CC and MLO views with tomosynthesis and synthetic mammography submitted. Computer aided detection analyzed. Breast composition: There are scattered areas of fibroglandular density. No suspicious masses, microcalcifications or architectural distortion. Stable bilateral nodules and calcifications. Biopsy clip upper outer quadrant LEFT breast. MM/MM scr BI tomosynthesis [id number] IMPRESSION: BI-RADS: 2 - Benign. FOLLOW UP: 1 Year Follow-up
== END 2024-10-18 12:25 | disposition home or self-care (01) ==
LOC: RAD 12:26
PROVIDERS: PCP Family Medicine; Visit Provider Family Medicine
DX: Z12.31 Encounter for screening mammogram for malignant neoplasm of breast (principal); R92.323 Mammographic fibroglandular density, bilateral breasts; N64.89 Other specified disorders of breast; R92.1 Mammographic calcification found on diagnostic imaging of breast
CPT/HCPCS: 77063; 77067